=== PATIENT | female | born 1985 | race Two or more races ===

== ENCOUNTER → 2024-03-29 06:21 | Day surgery (SDC) | payer BC, SELFPAY | LOC: GI 06:21 | PROVIDERS: ATTENDING PHYSICIAN Internal Medicine; FAMILY PHYSICIAN Physician Assistant Medical | DX: D12.8 Benign neoplasm of rectum (principal); D12.7 Benign neoplasm of rectosigmoid junction; K52.89 Other specified noninfective gastroenteritis and colitis; K29.50 Unspecified chronic gastritis without bleeding; R10.31 Right lower quadrant pain; K21.9 Gastro-esophageal reflux disease without esophagitis; R12 Heartburn | CPT/HCPCS: 45380; 43239; 45385; 88305; 83993; 88342 ==

== ENCOUNTER → 2024-03-29 11:52 | Outpatient (REF) | payer BC, SELFPAY ==
[2024-04-01 19:49] LABS: Calprotectin, Fecal 16 ug/g (<=49)
== END ==
LOC: REG 11:52
PROVIDERS: ATTENDING PHYSICIAN Internal Medicine; FAMILY PHYSICIAN Physician Assistant Medical
DX: R10.31 Right lower quadrant pain (principal)
CPT/HCPCS: 83993